=== PATIENT | female | born 1990 ===

== ENCOUNTER 2021-05-05 03:56 | Inpatient (IN) | payer SELFPAY ==
--- NOTE | 2021-05-05 06:15 | Ultrasound Report ---
ULTRASOUND OBSTETRIC COMPLETE INDICATION / CLINICAL INFORMATION: EFW ANISA PRESENTATION. Clinical Gestational Age (GA) in weeks, days: 38 weeks 0 days TECHNIQUE: Transabdominal. COMPARISON: None available. FINDINGS: NUMBER: Single PRESENTATION: cephalic AMNIOTIC FLUID VOLUME: normal AMNIOTIC FLUID INDEX (ANISA) in cm (if measured): 20.0 MEASUREMENTS: - Biparietal Diameter = 8.8 cm = 35 weeks 5 days - Head Circumference = 30.7 cm = 34 weeks 2 days - Abdominal Circumference = 31.7 cm = 35 weeks 4 days - Femur Length = 6.6 cm = 34 weeks 1 day - Estimated Weight (in grams, if calculated): 2589 - Heart Rate (beats per minute): 127 ADDITIONAL FINDINGS: None. AVERAGE ULTRASOUND AGE (AUA) in weeks, days = 35 weeks 0 days IMPRESSION: 1. Single intrauterine with AUA of 35 weeks 0 days. Clinical gestational age is reported as 38 weeks and 0 days. Clinical correlation is recommended. 2. Estimated weight is 2589 g. 3. ANISA measures 20 cm, within normal limits. 4. No significant abnormality. Signer Name: Jayy Rogers MD Signed: 05/05/2021 6:11 AM Workstation Name: [id number]
[2021-05-05] MEDS ORDERED: TERBUTALINE 1 MG/1 ML INJ SUB-Q PRN (06:21)
[2021-05-05] MEDS ORDERED: ePHEDrine SULFATE 50 MG/1 ML INJ IV PRN ×2 (06:21→07:30)
[2021-05-05] MEDS ORDERED: MINERAL OIL 30 ML ORAL LIQD PO PRN (06:21)
[2021-05-05] MEDS ORDERED: AMPICILLIN/NS 2 GM/100 ML 2 GM/100 ML BAG IV ONE (06:21)
[2021-05-05] MEDS ORDERED: OXYTOCIN 10 UNIT/1 ML INJ IM PRN (06:21)
[2021-05-05] MEDS ORDERED: BUTORPHANOL 2 MG/1 ML INJ IV PRN (06:21)
[2021-05-05] MEDS ORDERED: LOPERAMIDE 2 MG CAP PO PRN (06:21)
[2021-05-05] MEDS ORDERED: fentaNYL 100 MCG/2 ML INJ IV PRN (06:21)
[2021-05-05] MEDS ORDERED: LIDOCAINE (2%) 20 MG/1 ML VIAL 20 ML MDV INFILTRATI ONE (06:21)
[2021-05-05] MEDS ORDERED: CARBOPROST TROMETHAMINE 250 MCG/1 ML INJ IM PRN (06:21)
[2021-05-05] MEDS ORDERED: METHYLERGONOVINE MALEATE 0.2 MG/ML VIAL IM PRN (06:21)
[2021-05-05] MEDS ORDERED: ACETAMINOPHEN 325 MG TAB PO PRN (06:21)
[2021-05-05] MEDS ORDERED: miSOPROStol 200 MCG TAB PR PRN (06:21)
[2021-05-05] MEDS ORDERED: LACTATED RINGERS 1,000 ML IV SCH (06:30)
[2021-05-05 06:40] LABS: Hematocrit 37.5 % (30.3-42.9); Hemoglobin 11.8 gm/dl (10.1-14.3); Mean Corpuscular HGB Conc 32 % (30-34); Mean Corpuscular Volume 83 fl (79-97); Platelet Count 280 K/mm3 (140-440); Red Blood Count 4.54 M/mm3 (3.65-5.03)
[2021-05-05] MEDS ORDERED: OXYTOCIN DRIP 30 UNITS/500 ML BAG IV SCH (07:00)
--- NOTE | 2021-05-05 07:08 | History and Physical Report ---
History of Present Illness Date of examination: 05/05/21 Date of admission: 05/05/21 06:59 Chief complaint: 05/05/2021 History of present illness: 30 y/o at 38+ weeks presents to OBT reporting regular and painful CTX q 5 min. No VB or LOF. Good FM. The patient's 1st gestation was delivered in [place] via delivery. Per the patient, that delivery was performed emergently via a vertical skin incision for bradycardia that was ultimately deemed to be secondary to umbilical cord around the neck x3. She does not have a copy of that operative report; hence, she has an unknown uterine scar. Her cervical exam changed from 3/70%/-2 in OBT to 7/100/-3 in L&D. Although she was originally scheduled for RCS at 39 weeks, she now desires TOLAC in hopes of a successful . She understand that the risk of uterine rupture is ~2% with an unknown scar if attempting TOLAC. The R/A/B were explained via a Divehi language line lettuce cutter, and she consented to the TOLAC. Past History Past Medical History: no pertinent history Past Surgical History: section Family/Genetic History: none Social history: no significant social history - Obstetrical History Expected Date of Delivery: 05/18/21 Actual Gestation: 38 Week(s) 2 Day(s) : 2 Para: 1 Hx # Term Pregnancies: 1 Medications and Allergies Allergies Allergy/AdvReac Type Severity Reaction Status Date / Time No Known Allergies Allergy Unverified 05/05/21 04:11 Active Meds: Active Medications Acetaminophen (Acetaminophen 325 Mg Tab) 650 mg PO Q4H PRN PRN Reason: Pain, Mild (1-3) Butorphanol Tartrate (Butorphanol 2 Mg/1 Ml Inj) 1 mg IV Q2H PRN PRN Reason: Pain, Moderate(4-6) LABOR PAIN Carboprost Tromethamine (Carboprost Tromethamine 250 Mcg/1 Ml Inj) 250 mcg IM ONCE PRN PRN Reason: Uterine Bleeding Ephedrine Sulfate (Ephedrine Sulfate 50 Mg/1 Ml Inj) 10 mg IV Q2M PRN PRN Reason: Hypotension Fentanyl (Fentanyl 100 Mcg/2 Ml Inj) 100 mcg IV Q2H PRN PRN Reason: Pain,Severe (7-10) LABOR PAIN Oxytocin/Sodium Chloride (Pitocin/Ns 30 Unit/500ml) 30 units in 500 mls @ 2 mls/hr IV TITR NATALIE; Protocol Lactated Ringer's (Lactated Ringers) 1,000 mls @ 125 mls/hr IV DIRECT NATALIE Oxytocin/Sodium Chloride (Pitocin/Ns 30 Unit/500ml) 30 units in 500 mls @ 40 mls/hr IV TITR NATALIE; Protocol Ampicillin Sodium (Ampicillin/Ns 2 Gm/100 Ml) 2 gm in 100 mls @ 100 mls/hr IV ONCE ONE; Protocol Stop: 05/05/21 07:20 Loperamide HCl (Loperamide 2 Mg Cap) 2 mg PO ONCE PRN PRN Reason: give with Hemabate Methylergonovine Maleate (Methylergonovine Maleate 0.2 Mg/Ml Vial) 0.2 mg IM ONCE PRN PRN Reason: Uterine Bleeding Mineral Oil (Mineral Oil 30 Ml Oral Liqd) 30 ml PO QHS PRN PRN Reason: Constipation Misoprostol (Misoprostol 200 Mcg Tab) 800 mcg DE ONCE PRN PRN Reason: Uterine Bleeding Oxytocin (Oxytocin 10 Unit/1 Ml Inj) 10 unit IM ONCE PRN PRN Reason: Uterine Bleeding Terbutaline Sulfate (Terbutaline 1 Mg/1 Ml Inj) 0.25 mg SUB-Q ONCE PRN PRN Reason: Hyperstimulation/Hypertonicity Review of Systems All systems: negative - Vital Signs Vital signs: Vital Signs Temp Pulse Resp BP Pulse Ox 97.9 F 72 14 129/66 100 05/05/21 04:11 05/05/21 04:11 05/05/21 04:11 05/05/21 04:11 05/05/21 04:11 Temp Pulse Resp BP Pulse Ox 97.9 F 108 H 14 129/66 98 05/05/21 04:11 05/05/21 07:00 05/05/21 04:11 05/05/21 04:20 05/05/21 07:00 - Physical Exam Breasts: Positive: normal Cardiovascular: Regular rate Lungs: Positive: Normal air movement Abdomen: Positive: normal appearance Genitourinary (Female): Positive: normal external genitalia Vulva: both: normal Vagina: Positive: normal moisture Uterus: Positive: enlarged Adnexa: both: normal Extremities: Positive: normal Deep Tendon Reflex Grade: Normal +2 - Obstetrical FHR: category 1 Uterine Contraction Monitor Mode: External Cervical Dilatation: 7 Cervical Effacement Percentage: 100 station: -3 Uterine Contraction Frequency (min): 5 Uterine Contraction Pattern: Regular Results Result Diagrams: 05/05/21 22:36 Abnormal lab results 05/05/21 Range/Units 06:20 WBC 11.5 H (4.5-11.0) K/mm3 MCH 26 L (28-32) pg RDW 16.0 H (13.2-15.2) % All other labs normal. Ultrasound: report reviewed (OB US Limited= SLIUP. Vertex. EFW= 2589 g (6th %- ile). ANISA= 20 cm.) Assessment and Plan - Patient Problems (1) 38 weeks gestation of Current Visit: Yes Status: Acute Plan to address problem: care is up-to-date at [facility]. (2) Spontaneous onset of labor Current Visit: Yes Status: Acute Plan to address problem: This patient is in active labor. Admit to L&D. She wishes to attempt a TOLAC. (3) Previous delivery affecting , antepartum Current Visit: Yes Status: Acute Plan to address problem: The patient's 1st gestation was delivered in [place] via delivery. Per the patient, that delivery was performed emergently via a vertical skin incision for bradycardia that was ultimately deemed to be secondary to umbilical cord around the neck x3. She does not have a copy of that operative report; hence, she has an unknown uterine scar. (4) Desires (vaginal after ) trial Current Visit: Yes Status: Acute Plan to address problem: Although she was originally scheduled for RCS at 39 weeks, she now desires TOLAC in hopes of a successful . She understand that the risk of uterine rupture is ~2% with an unknown scar if attempting TOLAC. EFW is 2589 g. The R/A/B were explained via a Divehi language line lettuce cutter, and she consented to the TOLAC. (5) SGA (small for gestational age), , affecting care of mother, antepartum Current Visit: Yes Status: Acute Qualifiers: Fetus number: single or unspecified fetus Qualified Code(s): O36.5990 - Maternal care for other known or suspected poor growth, unspecified tri mester, not applicable or unspecified Plan to address problem: Etiology is unknown.
[2021-05-05] MEDS ORDERED: NALOXONE 2 MG/2 ML INJ IV PRN (07:30)
[2021-05-05] MEDS: OXYTOCIN DRIP 30 UNITS/500 ML BAG IV SCH ×2 (07:50→08:51)
[2021-05-05] MEDS ORDERED: fentaNYL-BUPIV 2 MCG/ML-0.125% 200 MCG/100 ML BAG EPIDURAL SCH (08:00)
--- NOTE | 2021-05-05 08:36 | Procedure Note ---
OB Delivery Note - Delivery Date of Delivery: 05/05/21 Surgeon: DONNA BREEN Estimated blood loss: 500cc - Vaginal Delivery position: OA Intrapartum events: precipitous labor- <3hr, other(please specify) (Previous delivery) Delivery induction: none Delivery monitor: external FHT, external uterine, internal FHT, internal uterine Route of delivery: Delivery placenta: spontaneous Delivery cord: 3 umbilical vessels Episiotomy: none Delivery laceration: vaginal side wall Delivery repair: vicryl Anesthesia: local - A at 1 minute: 8 at 5 minutes: 9
[2021-05-05] MEDS ORDERED: diphenhydrAMINE 25 MG CAP PO PRN (09:00)
[2021-05-05] MEDS ORDERED: WITCH HAZEL/ GLYCERIN PAD TP PRN (09:00)
[2021-05-05] MEDS ORDERED: ONDANSETRON 4 MG/2 ML INJ IV PRN (09:00)
[2021-05-05] MEDS ORDERED: BENZOCAINE/MENTHOL 20/0.5% TOP SPRAY 56 GM TP PRN (09:00)
[2021-05-05] MEDS ORDERED: LANOLIN/ZINC/DIMETHICONE (LANSINOH) 7 GM TP PRN (09:00)
[2021-05-05] MEDS ORDERED: HYDROcodone/ACETAMINOPHEN 5-325 MG TAB PO PRN (09:00)
[2021-05-05] MEDS ORDERED: PROMETHAZINE 25 MG TAB PO PRN (09:00)
[2021-05-05 09:39] LABS: Hematocrit 33.7 % (30.3-42.9); Hemoglobin 11.3 gm/dl (10.1-14.3); Mean Corpuscular HGB Conc 34 % (30-34); Mean Corpuscular Volume 81 fl (79-97); Platelet Count 254 K/mm3 (140-440); Red Blood Count 4.14 M/mm3 (3.65-5.03); Red Cell Distribution Width 15.9 % (13.2-15.2)
--- NOTE | 2021-05-05 10:24 | Progress Note ---
Subjective Date of service: 05/05/21 (729) Interval history: Ask to evaluate patient for Labor Analgesia. Per RIDGE [place] patient received Fentanyl @ 0715. Furthermore, patient is now complete. Objective - Constitutional Vitals: Vital Signs - 12hr 05/05/21 05/05/21 05/05/21 04:11 04:20 06:40 Temperature 97.9 F Pulse Rate 72 72 84 Respiratory 14 Rate Blood Pressure 129/66 Blood Pressure 129/66 [Right] O2 Sat by Pulse 100 97 Oximetry 05/05/21 05/05/21 05/05/21 06:45 06:50 06:55 Temperature Pulse Rate 75 76 84 Respiratory Rate Blood Pressure Blood Pressure [Right] O2 Sat by Pulse 98 97 98 Oximetry 05/05/21 05/05/21 05/05/21 07:00 07:05 07:10 Temperature Pulse Rate 108 H 83 80 Respiratory Rate Blood Pressure Blood Pressure [Right] O2 Sat by Pulse 98 99 99 Oximetry 05/05/21 05/05/21 05/05/21 07:11 07:15 07:20 Temperature Pulse Rate 72 65 66 Respiratory Rate Blood Pressure Blood Pressure [Right] O2 Sat by Pulse 93 97 94 Oximetry 05/05/21 05/05/21 05/05/21 07:25 07:30 07:35 Temperature Pulse Rate 74 98 H 118 H Respiratory Rate Blood Pressure Blood Pressure [Right] O2 Sat by Pulse 98 99 100 Oximetry 05/05/21 05/05/21 05/05/21 07:40 07:45 07:50 Temperature Pulse Rate 95 H 111 H 113 H Respiratory Rate Blood Pressure Blood Pressure [Right] O2 Sat by Pulse 100 100 98 Oximetry 05/05/21 05/05/21 05/05/21 07:53 07:55 08:00 Temperature Pulse Rate 106 H 108 H 103 H Respiratory Rate Blood Pressure 111/54 Blood Pressure [Right] O2 Sat by Pulse 100 100 Oximetry 05/05/21 05/05/21 05/05/21 08:05 08:07 08:10 Temperature Pulse Rate 96 H 90 94 H Respiratory Rate Blood Pressure 107/53 Blood Pressure [Right] O2 Sat by Pulse 100 98 Oximetry 05/05/21 05/05/21 05/05/21 08:15 08:20 08:22 Temperature Pulse Rate 86 87 88 Respiratory Rate Blood Pressure 121/58 Blood Pressure [Right] O2 Sat by Pulse 98 91 Oximetry 05/05/21 05/05/21 05/05/21 08:25 08:28 08:30 Temperature Pulse Rate 91 H 89 81 Respiratory Rate Blood Pressure Blood Pressure [Right] O2 Sat by Pulse 98 92 97 Oximetry 05/05/21 05/05/21 05/05/21 08:35 08:38 08:39 Temperature Pulse Rate 79 81 92 H Respiratory Rate Blood Pressure 126/57 Blood Pressure [Right] O2 Sat by Pulse 97 93 Oximetry 05/05/21 05/05/21 05/05/21 08:40 08:45 08:50 Temperature Pulse Rate 88 89 83 Respiratory Rate Blood Pressure Blood Pressure [Right] O2 Sat by Pulse 97 97 97 Oximetry 05/05/21 05/05/21 05/05/21 08:53 08:55 09:00 Temperature Pulse Rate 90 87 90 Respiratory Rate Blood Pressure 119/55 Blood Pressure [Right] O2 Sat by Pulse 97 97 Oximetry 05/05/21 05/05/21 05/05/21 09:05 09:08 09:10 Temperature Pulse Rate 83 81 81 Respiratory Rate Blood Pressure 119/65 Blood Pressure [Right] O2 Sat by Pulse 97 97 Oximetry 05/05/21 05/05/21 05/05/21 09:15 09:20 09:25 Temperature Pulse Rate 87 92 H 92 H Respiratory Rate Blood Pressure Blood Pressure [Right] O2 Sat by Pulse 99 99 98 Oximetry 05/05/21 05/05/21 05/05/21 09:30 09:35 09:40 Temperature Pulse Rate 98 H 89 91 H Respiratory Rate Blood Pressure Blood Pressure [Right] O2 Sat by Pulse 97 97 98 Oximetry 05/05/21 05/05/21 05/05/21 09:45 09:50 09:53 Temperature Pulse Rate 83 83 85 Respiratory Rate Blood Pressure 116/59 Blood Pressure [Right] O2 Sat by Pulse 99 98 Oximetry 05/05/21 05/05/21 09:55 10:00 Temperature Pulse Rate 76 82 Respiratory Rate Blood Pressure Blood Pressure [Right] O2 Sat by Pulse 99 98 Oximetry - Labs CBC & Chem 7: 05/05/21 09:23 Labs: Abnormal lab results 05/05/21 05/05/21 Range/Units 06:20 09:23 WBC 11.5 H 15.5 H (4.5-11.0) K/mm3 MCH 26 L 27 L (28-32) pg RDW 16.0 H 15.9 H (13.2-15.2) %
[2021-05-05] MEDS: IBUPROFEN 800 MG TAB PO SCH ×2 (15:23→22:07)
[2021-05-05] MEDS ORDERED: MAGNESIUM HYDROXIDE (MOM) ORAL LIQD UDC PO PRN (22:00)
[2021-05-05] MEDS: DOCUSATE SODIUM 100 MG CAP PO SCH (22:07)
[2021-05-05 23:11] LABS: Hematocrit 29.2 % (30.3-42.9); Hemoglobin 9.7 gm/dl (10.1-14.3)
[2021-05-06] MEDS: IBUPROFEN 800 MG TAB PO SCH ×2 (05:52→18:19)
[2021-05-06] MEDS ORDERED: LACTATED RINGERS 250 ML IV SCH (09:00)
[2021-05-06] MEDS: PRENATAL VIT27-FE FUMARATE-FOLIC ACID VIT TAB PO SCH (09:11)
[2021-05-06] MEDS: ACETAMINOPHEN 325 MG TAB PO PRN (09:11)
[2021-05-06] MEDS: DOCUSATE SODIUM 100 MG CAP PO SCH ×2 (09:11→22:05)
[2021-05-06] MEDS: FERROUS SULFATE 325 MG TAB PO SCH ×2 (11:13→22:04)
--- NOTE | 2021-05-06 12:37 | Progress Note ---
Assessment and Plan A: day 1 S/P (). Anemia. P: Continue oral iron supplementation. Increase oral hydration. Repeat CBC. Urinalysis. Anticipate discharge home tomorrow if patient continues to do well. Subjective - Subjective Date of service: 05/06/21 Principal diagnosis: day 1 S/P Patient reports: appetite normal, voiding normally, pain well controlled, flatus, ambulating normally, no dizzy ambulation, no nauseated : doing well Objective - Vital Signs Latest vital signs: Vital Signs Temp Pulse Resp BP Pulse Ox Pulse Ox 05/06/21 08:30 98.5 F 76 18 92/52 98 05/06/21 08:24 98 05/06/21 05:52 18 05/06/21 00:45 97.9 F 97 H 18 95/47 96 05/05/21 23:07 18 05/05/21 22:07 18 05/05/21 20:24 100 05/05/21 16:54 98.5 F 87 16 102/42 97 Intake and Output 05/05/21 05/06/21 05/06/21 23:59 07:59 15:59 Intake Total 960 240 120 Output Total 1150 200 Balance -190 40 120 Intake: Oral 600 240 120 Intake, Free Water 360 Output: Urine 1150 200 Void 1150 200 Other: Total, Intake Amount 240 120 120 Total, Output Amount 300 200 # Voids Void 1 1 - Exam Cardiovascular: Present: Regular rate, No murmurs Lungs: Present: Clear to auscultation Abdomen: Present: normal appearance, soft. Absent: distention, tenderness, guarding, rigidity Uterus: Present: normal, firm, fundal height below umbilicus. Absent: bogginess, tenderness Extremities: Absent: tenderness - Labs Labs: Abnormal lab results 05/05/21 Range/Units 22:36 Hgb 9.7 L (10.1-14.3) gm/dl Hct 29.2 L (30.3-42.9) %
[2021-05-06 13:16] LABS: Basophils % (Auto) 0.4 % (0.0-1.8); Eosinophils # (Auto) 0.1 K/mm3 (0.0-0.4); Eosinophils % (Auto) 0.7 % (0.0-4.3); Hematocrit 28.8 % (30.3-42.9); Hemoglobin 9.7 gm/dl (10.1-14.3); Lymphocytes # (Auto) 2.6 K/mm3 (1.2-5.4); Lymphocytes % (Auto) 28.4 % (13.4-35.0); Mean Corpuscular HGB Conc 34 % (30-34); Mean Corpuscular Volume 83 fl (79-97); Monocytes # (Auto) 0.8 K/mm3 (0.0-0.8); Monocytes % (Auto) 8.5 % (0.0-7.3); Platelet Count 242 K/mm3 (140-440); Red Blood Count 3.46 M/mm3 (3.65-5.03); Red Cell Distribution Width 16.4 % (13.2-15.2)
[2021-05-06 15:24] LABS: Bacteria,Urine 1+ /HPF (Negative); Bilirubin,Urine NEG (Negative); Blood,Urine LG (Negative); Color,Urine Straw (Yellow); Mucus,Urine FEW /HPF; Protein,Urine <15 mg/dL mg/dL (Negative); Urobilinogen,Urine < 2.0 mg/dL (<2.0)
[2021-05-06] MEDS: AMOXICILLIN/K CLAV 500/125MG TAB PO SCH ×2 (18:19→22:05)
[2021-05-07] MEDS: IBUPROFEN 800 MG TAB PO SCH (05:30)
--- NOTE | 2021-05-07 06:48 | Progress Note ---
Assessment and Plan A: day 2 S/P . Anemia. UTI. P: Discharge patient home today. Prescription for Ferrous Sulfate and Augmentin left on patient's chart for patient to go home on. Discussed with patient discharge instructions and warning signs. Advised patient to take Ferrous Sulfate and Augmentin as prescribed. Advised patient to avoid intercourse, lifting, housework. Advised patient to follow up at [facility] in 2 weeks. Patient voiced understanding of all instructions. Subjective - Subjective Date of service: 05/07/21 Principal diagnosis: day 2 S/P Interval history: Taking Augmentin for UTI. Afebrile. Patient reports: appetite normal, voiding normally, pain well controlled, flatus, ambulating normally, no dizzy ambulation, no nauseated : doing well Objective - Vital Signs Latest vital signs: Vital Signs Temp Pulse Resp BP BP Pulse Ox Pulse Ox 05/07/21 06:30 18 05/07/21 05:30 18 05/07/21 01:51 98.6 F 92 H 18 108/54 97 05/06/21 20:00 98 05/06/21 16:33 98.6 F 85 18 97/52 97 05/06/21 08:30 98.5 F 76 18 92/52 98 05/06/21 08:24 98 05/06/21 08:22 98.4 F 67 18 99/56 97 05/06/21 08:18 98.5 F 76 18 92/52 98 Intake and Output 05/06/21 05/06/21 05/07/21 15:59 23:59 07:59 Intake Total 120 360 360 Balance 120 360 360 Intake: Oral 120 Intake, Free Water 360 360 Other: Total, Intake Amount 120 # Voids Void 1 2 2 - Exam Abdomen: Present: normal appearance, soft. Absent: distention, tenderness, guarding, rigidity Uterus: Present: normal, firm, fundal height below umbilicus. Absent: bogginess, tenderness Extremities: Absent: tenderness - Labs Labs: Abnormal lab results 05/06/21 05/06/21 Range/Units 11:53 13:54 RBC 3.46 L (3.65-5.03) M/mm3 Hgb 9.7 L (10.1-14.3) gm/dl Hct 28.8 L (30.3-42.9) % RDW 16.4 H (13.2-15.2) % Coal % (Auto) 8.5 H (0.0-7.3) % Urine WBC (Auto) 33.0 H (0.0-6.0) /HPF
--- NOTE | 2021-05-07 06:52 | Discharge Summary ---
Providers - Providers Date of Admission: 05/05/21 08:47 Date of discharge: 05/07/21 Attending physician: DONNA BRENE MD Primary care physician: DONNA BREEN MD Hospitalization Reason for admission: active labor Delivery: , Laceration: 1st degree complications: none Discharge diagnosis: IUP at term delivered [place] baby: female Pertinent studies: Labs Hospital course: Stable hospital course Condition at discharge: Good Disposition: 01 HOME / SELF CARE / HOMELESS - Discharge Diagnoses (1) Term delivered Status: Acute (2) Anemia Status: Acute (3) UTI (urinary tract infection) Status: Acute Plan - Discharge Medications Prescriptions: Amoxicillin/K Clav Tab [Augmentin 500 MG TAB] 1 each PO Q12HR 5 Days #10 tablet Ferrous Sulfate [Iron 325 MG] 325 mg PO Q12H 30 Days #60 - Provider Discharge Summary Activity: routine, no sex for 6 weeks, no heavy lifting 4 weeks, no strenuous exercise Diet: routine Instructions: routine Additional instructions: Take Ferrous Sulfate and Augmentin as prescribed. Follow up at [facility] in 2 weeks. Call your doctor immediately for: * Fever > 100.5 * Heavy vaginal bleeding ( >1 pad per hour) * Severe persistent headache * Shortness of breath * Reddened, hot, painful area to leg or breast - Follow up plan Follow up: PRIMARY CARE, [Referring] - 14 Days
[2021-05-07] MEDS: PRENATAL VIT27-FE FUMARATE-FOLIC ACID VIT TAB PO SCH (10:00)
[2021-05-07] MEDS: DOCUSATE SODIUM 100 MG CAP PO SCH (10:00)
[2021-05-07] MEDS: FERROUS SULFATE 325 MG TAB PO SCH (10:00)
[2021-05-07] MEDS: ACETAMINOPHEN 325 MG TAB PO PRN (10:00)
[2021-05-07 15:44] VITALS: BP 104/37
== END 2021-05-07 15:50 | disposition home or self-care (01) | DRG 806 ==
LOC: TRG 03:56 → APU 03:58 → TRG 06:58 → LD 06:59 → OBSVTOIN 08:47 → OB 10:34
PROVIDERS: ADMIT Obstetrics & Gynecology Gynecology; ATTEND Obstetrics & Gynecology Gynecology
PROC: 10E0XZZ Delivery of Products of Conception, External Approach (ICD-10-PCS; principal; 2021-05-05)
PROC: 0HQ9XZZ Repair Perineum Skin, External Approach (ICD-10-PCS; 2021-05-05)
PROC: 10907ZC Drainage of Amniotic Fluid, Therapeutic from Products of Conception, Via Natural or Artificial Opening (ICD-10-PCS; 2021-05-05)
DX: O34.211 Maternal care for low transverse scar from previous cesarean delivery (principal); O86.20 Urinary tract infection following delivery, unspecified; Z37.0 Single live birth; N39.0 Urinary tract infection, site not specified; Z3A.38 38 weeks gestation of pregnancy; O70.1 Second degree perineal laceration during delivery; Z20.822 Contact with and (suspected) exposure to COVID-19; O62.3 Precipitate labor; O90.81 Anemia of the puerperium; O70.0 First degree perineal laceration during delivery
CPT/HCPCS: 36415; 59025; 76816; 81001; 85014; 85018; 85025; 85027; 86592; 86850; 86900; 86901; 87086; G0378; J2590; J3010; J7120; U0003